=== PATIENT | male | born 1975 | race Caucasian/White ===

== ENCOUNTER → 2016-11-22 | Outpatient (CLI) | payer OTHER ==
--- NOTE | 2016-11-23 07:57 | XR ---
EXAMINATION TYPE: XR chest 2V DATE OF EXAM: 11/22/2016 1:04 PM COMPARISON: NONE HISTORY: Cough with soft tissue mass left lower rib cage FINDINGS: The lungs are clear and there is no pneumothorax, pleural effusion, or focal pneumonia. IMPRESSION: 1. No acute process.
== END | disposition home or self-care (01) ==
LOC: RADXRYALE 12:52
PROVIDERS: ATTEND Internal Medicine
DX: R05 Cough (principal); R22.2 Localized swelling, mass and lump, trunk; M79.81 Nontraumatic hematoma of soft tissue
CPT/HCPCS: 71020

== ENCOUNTER → 2016-11-25 | Outpatient (CLI) | payer OTHER ==
--- NOTE | 2016-11-25 19:51 | US ---
EXAMINATION TYPE: US scrotum with doppler. Grayscale and color Doppler Duplex imaging performed of mike xavier scrotum. DATE OF EXAM: 11/25/2016 6:39 PM COMPARISON: NONE CLINICAL HISTORY: Intermittent Left scrotal pain with foreplay; states pain feels same as after vasec josué years prior. 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 There is no evidence of testicular torsion. Presence of hydroceles: no hydrocele is noted bilaterally. In inferior left scrotal sac tortuous ve ins are noted, however, vein size without Valsalva Maneuver is within normal limits (<0.25cm), and ve ins dilate with Valsalva Maneuver. On US image #[id number] internal vein wall echoes are noted (without Va lsalva) which suggests partial venous thrombosis in upper left scrotal sac at visualized vein. IMPRESSION: No testicular torsion or mass. 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 There are prominent vessels on the left side consistent with mild varic ocele.
== END | disposition home or self-care (01) ==
LOC: RADUSWWP 17:38
PROVIDERS: ATTEND Internal Medicine
DX: I86.1 Scrotal varices (principal); N50.1 Vascular disorders of male genital organs
CPT/HCPCS: 76870; 93975

== ENCOUNTER → 2020-09-21 | Outpatient (CLI) | payer OTHER ==
--- NOTE | 2020-09-21 12:46 | XR ---
No sacral spine HISTORY: Low back pain, strain one week prior 5 views lumbosacral spine There is multilevel spondylosis. Retrolisthesis grade 1 L4-5. Loss of disc height present L5-S1. Scle rosis present in the posterior elements. No evident spondylolysis. IMPRESSION: No acute fracture. Degenerative disc disease and facet arthropathy.
== END | disposition home or self-care (01) ==
LOC: RADXRYALE 11:37
PROVIDERS: ATTEND Physician Assistant Medical
DX: M51.36 Other intervertebral disc degeneration, lumbar region (principal); M47.816 Spondylosis without myelopathy or radiculopathy, lumbar region
CPT/HCPCS: 72110

== ENCOUNTER → 2020-10-21 | Outpatient (CLI) | payer OTHER ==
--- NOTE | 2020-10-21 07:50 | MR ---
EXAMINATION TYPE: MR lumbar spine wo con DATE OF EXAM: 10/21/2020 COMPARISON: Lumbar spine x-ray September 21, 2020 HISTORY: Low back pain into kait lower extremities TECHNIQUE: Multiplanar, multisequence imaging of the lumbar spine is performed without IV contrast. FINDINGS: Sagittal images of the lumbar spine show vertebral body heights to remain satisfactory. Ali gnment straightened and satisfactory. Mild disc desiccation L4-L5 and L5-S1 levels. Disc space height s are maintained. Mild anterior spurring in the lower lumbar spine The conus medullaris is slightly low in position without abnormal signal ending mid L2 level. The bone marrow signal intensity is wit hin normal limits. Axial images are degraded by motion, repeat imaging is performed. Axial images at T12-L1, L1-L2, L2-L 3, and L3-L4 levels are within normal limits. Axial images at L4-L5 levels with mild broad disc bulge minimally effaces the anterior thecal sac, th ere is mild bilateral anterior inferior neural foraminal narrowing. Mild facet arthropathy bilaterall y. Axial images at L5-S1 level show focal central disc protrusion minimally effacing anterior thecal sac . Mild facet arthropathy bilaterally. Patent bilateral neural foramina. Paraspinal muscle bulk is preserved. IMPRESSION: Straightening of lumbar spine with mild degenerative changes lower lumbar levels as detai led above.
== END | disposition home or self-care (01) ==
LOC: RADMRIMAIN 06:39
PROVIDERS: ATTEND Family Medicine
DX: M47.26 Other spondylosis with radiculopathy, lumbar region (principal); M53.86 Other specified dorsopathies, lumbar region
CPT/HCPCS: 72148

== ENCOUNTER → 2022-07-22 | Outpatient (CLI) | payer OTHER ==
--- NOTE | 2022-07-22 08:58 | CT ---
EXAMINATION TYPE: CT soft tissue neck w con DATE OF EXAM: 07/22/2022 COMPARISON: None HISTORY: 47-year-old male R2 2.1, Lump/mass, localized swelling neck, left of midline TECHNIQUE: Contiguous axial scanning of the soft tissues of the neck performed with IV Contrast, reno ent injected with 70 mL of Isovue 300. Coronal/sagittal reconstructions performed. CT DLP: 890.6 mGycm Automated exposure control for dose reduction was used. FINDINGS: There is a palpable marker placed along the anterior neck, left of midline at the level of the thyroi d cartilage. There is an underlying rounded 1.3 cm soft tissue nodule, axial image 45 and coronal elyssa ge 19. Visualized intracranial structures, orbits and globes and mastoid air cells are clear. Prominent leftward nasal septal deviation. Mild mucosal thickening scattered throughout the ethmoid a ir cells and maxillary sinuses with a feel small 1.0 cm polyps or mucosal retention cysts in the maxi llary sinuses. Some frothy opacification left sphenoid sinus could represent an acute sinusitis and can be related c linically. Nasopharynx is clear. Prominent tubal and bilateral palatine tonsils narrowing the junction of the na sopharynx and oropharynx. Additional hypertrophy of the bilateral lingual tonsils. Possible slight thickening of the left half of the epiglottis questionable clinical significance. Thi s does not appear to be masslike thickening, sagittal image 46. Prevertebral soft tissues are satisfactory. Glottic and subglottic structures as well as the tracheal column and visualized upper lungs are clear . Thyroid gland, submandibular glands, and parotid glands are satisfactory. Slightly asymmetrically larger lymph nodes along the left side of the neck measuring up to 1.3 cm, St ation 2, axial image 53 and coronal image 35. These may be reactive/post inflammatory. Bones: Osseous destructive process. IMPRESSION: 1. PALPABLE MARKER PLACED ALONG THE ANTERIOR NECK, LEFT OF MIDLINE AT THE LEVEL OF THE THYROID CARTIL AGE. THERE IS AN UNDERLYING ROUND 1.3 CM SOFT TISSUE NODULE, LIKELY AN ENLARGED LYMPH NODE. CORRELATE FOR ANY SUSPICIOUS CLINICAL FEATURES TO DETERMINE IF THIS SHOULD BE FOLLOWED OR IF BIOPSY SHOULD BE PERFORMED. 2. SLIGHT ASYMMETRICALLY LARGER LYMPH NODES ALONG THE LEFT SIDE OF THE NECK. THESE ARE BORDERLINE BUT NOT ENLARGED BY CT SIZE CRITERIA UP TO 1.3 CM. 3. TUBAL AND PALATINE TONSILLAR HYPERTROPHY. ADDITIONAL HYPERTROPHY OF THE LINGUAL TONSILS. THE JUNCT ION OF THE NASOPHARYNX AND OROPHARYNX IS SECONDARILY NARROWED. NO DOMINANT ASYMMETRIC MASS IS SEEN. C ONSIDER DIRECT VISUALIZATION.
== END | disposition home or self-care (01) ==
LOC: RADCTMAIN 07:50
PROVIDERS: ATTEND Family Medicine
DX: J35.1 Hypertrophy of tonsils (principal); R59.0 Localized enlarged lymph nodes
CPT/HCPCS: 70491; Q9967

== ENCOUNTER 2022-11-11 12:17 | Day surgery (SDC) | payer OTHER ==
[2022-11-11 12:57] VITALS: RESP 16; TEMP 98.5
[2022-11-11 13:53] VITALS: BP 130/74; PULSE 95
--- NOTE | 2022-11-11 14:23 | US ---
Ultrasound-guided core biopsy of a left submandibular lymph node Date: 11/11/2022 History: Enlarged left submandibular lymph node Comparison: CT neck 07/22/2022 The risks and benefits of the procedure were explained to the patient, and the patient's questions we re answered. Informed consent was obtained. Limited ultrasound demonstrates a 1.2 x 1.2 x 0.8 cm hypoechoic left submandibular mass with minimal internal Doppler color flow. A critical pause was performed. Sterile field was prepared, and lidocaine was used for local anesthes ia. Under direct ultrasound guidance, four 18-gauge core specimens of the mass were obtained. One was submitted for touch prep, 2 submitted in formalin, and 1 in saline for flow cytometry. The patient tolerated the procedure well with no apparent complications. A postprocedural scan throug h the region of interest demonstrated no acute complications. After the procedure, the patient was observed for a short period of time, again with no complications . Impression: Ultrasound-guided biopsy of a left submandibular lymph node.
== END 2022-11-11 13:45 | disposition home or self-care (01) ==
LOC: RADPROMAIN 12:17
PROVIDERS: ATTEND Otolaryngology
DX: C85.90 Non-Hodgkin lymphoma, unspecified, unspecified site (principal)
CPT/HCPCS: 38505; 76942; 88184; 88185; 88305; 88341; 88342

== ENCOUNTER 2023-02-02 08:01 | Day surgery (SDC) | payer OTHER ==
[~2023-02-02 08:01] MED LIST: DEXAMETHASONE SOD PHOSPHATE 4 MG/ML 1 ML VIAL IV PRN; FAMOTIDINE 20 MG/2 ML VIAL IV PRN; ONDANSETRON 4 MG/2 ML VIAL IVP PRN; metroNIDAZOLE-NS PMX 500 MG in SALINE 1 100ML.BAG IVPB PRN
[2023-02-02] MEDS ORDERED: ONDANSETRON 4 MG/2 ML VIAL IVP ONE (08:06)
[2023-02-02] MEDS ORDERED: LIDOCAINE 1% (10MG/ML) FOR IV START INTRADERMA PRN (08:06)
[2023-02-02] MEDS ORDERED: HYDROmorphone 0.5 MG/0.5 ML SYRINGE IVP PRN (08:06)
[2023-02-02] MEDS ORDERED: DEXAMETHASONE SOD PHOSPHATE 4 MG/ML 1 ML VIAL IV ONE (08:06)
[2023-02-02] MEDS ORDERED: LACTATED RINGERS 1,000 ML IV SCH (08:06)
[2023-02-02] MEDS ORDERED: PROPOFOL 10 MG/ML 20 ML VIAL IV ONE (08:57)
[2023-02-02] MEDS ORDERED: MIDAZOLAM 2 MG/2 ML VIAL ONE (08:57)
[2023-02-02] MEDS ORDERED: PHENYLEPHRINE-0.9% NACL SYG 1,000 MCG/10 ML SYRINGE ONE (08:57)
[2023-02-02] MEDS ORDERED: fentaNYL (PF) 50 MCG/ML 2 ML AMP ONE (08:57)
[2023-02-02] MEDS ORDERED: LIDOCAINE 2% INJ 20 MG/ML (2 ML VIAL) ONE (08:57)
[2023-02-02] MEDS ORDERED: LIDOCAINE 1%-EPI 1:100,000 20 ML VIAL SQ ONE (09:16)
[2023-02-02] MEDS ORDERED: LACTATED RINGERS 1,000 ML IV ONE ×4 (09:49→10:05)
[2023-02-02 10:00] VITALS: TEMP 97.2
--- NOTE | 2023-02-02 10:01 | P.OP ---
Date of Procedure: 02/02/23 Preoperative Diagnosis: Deep space left neck mass Postoperative Diagnosis: Same Procedure(s) Performed: Excision of a deep space neck mass subfascial Anesthesia: GETA Surgeon: Moises Aviles Estimated Blood Loss (ml): 5 Pathology: other (Left neck mass) Condition: stable Disposition: PACU Indications for Procedure: This patient presented to the office with a left neck mass. Fine-needle aspiration did not reveal a definitive diagnosis there is no squamous cells noted. Patient requested surgical removal of this left neck mass. All risks, benefits, and alternative therapies were discussed. Consent was obtained and all questions were answered Operative Findings: Deep space left neck mass i.e. lymph node Description of Procedure: Patient was taken to the operative room placed in the supine position. A general inhalation anesthetic was administered the patient and subsequently had an LMA inserted to secure the airway. The neck was sterilely prepped and draped in usual fashion and this mass was identified by palpation. A curvilinear incision was made over this area after anesthetization with lidocaine 1% with epinephrine 1 100,000. Dissection was carried out through the subcutaneous fat through the platysmas muscle deep into the subfascial space. A large lymph node was identified just below the hyoid tightly adherent. This mass i.e. lymph node was dissected from the adjacent area. Hemostasis was obtained with handheld cauterization. We closed the deep subfascial space with 4-0 Monocryl. We closed the platysmas layer with 4-0 Monocryl. We closed the subcutaneous and subdermal area with 4-0 Monocryl. We closed the skin with a 50 rapid Vicryl in a running nonlocking fashion. Steri-Strips were applied and the patient tolerated this well. Follow-up will be in the office in 1 week. Awaiting pathology report.
[2023-02-02] MEDS: LACTATED RINGERS 1,000 ML IV ONE (10:05)
[2023-02-02 10:11] VITALS: RESP 16
[2023-02-02] MEDS ORDERED: IV FLUID CONTINUATION 1,000 ML IV ONE (10:30)
[2023-02-02 11:15] VITALS: BP 131/70; PULSE 71
== END 2023-02-02 11:24 | disposition home or self-care (01) ==
LOC: OR 08:01
PROVIDERS: ATTEND Otolaryngology
DX: R59.9 Enlarged lymph nodes, unspecified (principal); I10 Essential (primary) hypertension; K21.9 Gastro-esophageal reflux disease without esophagitis; J45.909 Unspecified asthma, uncomplicated; F10.90 Alcohol use, unspecified, uncomplicated; Z79.899 Other long term (current) drug therapy; Z82.49 Family history of ischemic heart disease and other diseases of the circulatory system; F17.200 Nicotine dependence, unspecified, uncomplicated; Z83.3 Family history of diabetes mellitus
CPT/HCPCS: 21555; 88184; 88185; 88342; 88307; 88341; J2250; J1100; J2405; J3010; J2370; J2704; J2001

== ENCOUNTER → 2024-10-03 | Outpatient (CLI) | payer OTHER ==
[2024-10-03 14:35] VITALS: BP 128/82; PULSE 104; RESP 16; TEMP 98.4
--- NOTE | 2024-10-03 15:03 | P.SLEEP ---
History of Present Illness DATE: 10/03/2024 CONSULTATION/NEW PATIENT EVALUATION HISTORY OF PRESENT ILLNESS/SLEEP-WAKE EVALUATION: 49-year-old gentleman had been evaluated in the sleep center for possible obstructive sleep apnea hypopnea syndrome. SLEEP SCHEDULE: Usually sleep schedule from 9 PM to 4 AM on weekdays and from 10 PM to 56 AM on weekend. FALLING ASLEEP: Usually no significant problems with falling asleep. DURING SLEEP: Patient snores and wakes up from sleep up to 4 times. Positive history of nocturia. No history of hypnogogical hallucinations, sleep paralysis, or cataplexy. DURING THE DAY/WAKE STATE: Patient may feel sleepiness during the day. [place] sleepiness scale is 11. Usually patient does not take naps. PAST MEDICAL HISTORY: Hypertension, asthma. PAST SURGICAL HISTORY: Thyroid resection for benign tumor. MEDICATIONS: Please see below. SOCIAL HISTORY: Please see below. FAMILY HISTORY: Please see below. REVIEW OF SYSTEMS: Snoring, multiple awakenings from sleep, sleepiness during the day. No fevers. No double vision. No recent chest pain. No shortness of breath. No abdominal pain. No bleeding episodes. No blood in urine. No seizure episodes. PHYSICAL EXAMINATION: GENERAL: A pleasant patient without any distress. VITAL SIGNS: Please see below, weight 292 pounds, BMI 43.7. HEENT: PERRLA, EOMI. Evaluation of oropharynx showed tongue protrudes midline, low position of soft palate Mallampati 34, retrognathia 2 mm. NECK: Supple. No JVD. Thyroid is not palpable. 20 inches in circumference. LUNGS: Clear to percussion and to auscultation. Good air exchange. No wheezing or rhonchi. HEART: S1, S2 regular. No murmurs, gallops or rubs. ABDOMEN: Soft and nontender. Bowel sounds are present. No organomegaly appreciated. EXTREMITIES: No clubbing or cyanosis. DERRICK BUILDER: Awake, alert, and oriented x3. Cranial nerves 2 to 7 intact. There is no fasciculation or atrophy noted. No focal deficits observed. ASSESSMENT: 1. Snoring, multiple awakenings from sleep, low position of soft palate Mallampati 34, wide neck 20 inches in circumference, sleepiness with [place] Sleepiness Scale increased to 11. Obstructive sleep apnea hypopnea syndrome. 2. Obesity, BMI 43.7. 3. Hypertension. 4. Asthma. 5 status post thyroid resection for benign tumor. 6 . Status post cholecystectomy. 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 Polysomnography for evaluation of patient's breathing during sleep. 2. Following plan after reading sleep study. 3. Preferable position during sleep on the side. 4. No driving if patient feels any sleepiness. Patient is aware of civil and criminal liability for unsafe driving. 5. Sleep hygiene with regular sleep time for at least 7.5-8 hours. 6. Watching and losing weight. Thank you very much for referring this patient for consultation. Sincerely, Og Mane MD, PhD, FAASM. Diplomat of [place] [employer], Sleep Medicine Board by [place] [employer] [place] [employer] Phytopathologist of [facility] [place] Past Medical History Past Medical History: Asthma, Hypertension Additional Past Medical History / Comment(s): borderline hypertension History of Any Multi-Drug Resistant Organisms: None Reported Past Surgical History: Adenoidectomy, Cholecystectomy, Tonsillectomy Additional Past Surgical History / Comment(s): vasectomy 2006, wisdom tooth pulled, nose surgery when broken as a child Past Anesthesia/Blood Transfusion Reactions: No Reported Reaction Past Psychological History: No Psychological Hx Reported Smoking Status: Former smoker Past Alcohol Use History: Occasional Additional Past Alcohol Use History / Comment(s): quit smoking in 2013 was 2 packs per day for 20 years Past Drug Use History: None Reported - Past Family History Father Family Medical History: Asthma, Eye Disorder Additional Family Medical History / Comment(s): bad back, glaucoma Mother Family Medical History: Coronary Artery Disease (CAD) Additional Family Medical History / Comment(s): "bad teeth", pacemaker Medications and Allergies Home Medications Medication Instructions Recorded Confirmed Type Montelukast [Singulair] 10 mg PO HS 10/24/22 10/03/24 History lisinopriL [Zestril] 20 mg PO HS 10/24/22 10/03/24 History Fluticasone Propionate [Flonase 1 spray EA NOSTRIL DAILY 01/30/23 01/30/23 History Allergy Relief] Allergies Allergy/AdvReac Type Severity Reaction Status Date / Time No Known Allergies Allergy Verified 02/02/23 08:28 Physical Exam Vitals: Vital Signs Temp Pulse Resp BP Pulse Ox 10/03/24 14:32 98.4 F 104 H 16 128/82 95 Intake and Output 10/02/24 10/03/24 10/03/24 22:59 06:59 14:59 Other: Weight 132.449 kg Sleep Note - Sleep Data ESS Total: 11 - Sleep Note Sleep Note: Temperature: 98.4 F Pulse Rate: 104 Respiratory Rate: 16 Blood Pressure: 128/82 SpO2: 95 Height: 5 ft 8.5 in Weight: 132.449 kg BMI: Neck Circumference: 20
== END ==
LOC: 3 N SLEEP 14:03
PROVIDERS: ATTEND Internal Medicine
DX: G47.33 Obstructive sleep apnea (adult) (pediatric) (principal); G47.10 Hypersomnia, unspecified; E66.9 Obesity, unspecified; I10 Essential (primary) hypertension; J45.909 Unspecified asthma, uncomplicated; F17.200 Nicotine dependence, unspecified, uncomplicated; Z90.49 Acquired absence of other specified parts of digestive tract; Z98.890 Other specified postprocedural states; Z68.41 Body mass index [BMI] 40.0-44.9, adult; Z85.850 Personal history of malignant neoplasm of thyroid; Z79.899 Other long term (current) drug therapy; Z79.51 Long term (current) use of inhaled steroids
CPT/HCPCS: 99211

== ENCOUNTER 2024-10-22 19:43 | Outpatient (CLI) | payer OTHER ==
--- NOTE | 2024-10-23 14:27 | P.PCN ---
Description of Procedure: POLYSOMNOGRAPHY REPORT PROCEDURE(S)/DATE(S): Polysomnography 10/22/2024 CLINICAL: Patient has been seen in the sleep center for evaluation of obstructive sleep apnea-hypopnea syndrome. Please see my consultation. Sleep study has been done for evaluation of patient breathing during the sleep. PROCEDURE: The standard montage for clinical polysomnography included the electroencephalogram, the electrooculogram, the mentalis surface electromyography and Lead II cardiography. The respiratory battery consisted of measurements of nasal/buccal air flow, pressure transducer measurements from nose, thoracic and/or abdominal effort and intercostal surface electromyography. Video monitoring has been done to check for any parasomnia events. Nocturnal oxyhemoglobin saturations were obtained by finger oximetry. Step-inman titration with positive airway pressure was utilized to control the respiratory events, if necessary. RESULTS: During the diagnostic sleep study sleep efficiency was decreased to 79.2%. Latency to sleep onset was in short range 8.5 min. Sleep architecture showed stage NI was increased to 13.1%, Delta sleep was normal 6.5%, REM sleep was decreased to 10.6%. Respiratory channel showed 12 obstructive apneas, 0 mixed apneas, 0 central apneas, 266 hypopneas with lowest oxygen level 73%. Total apnea hypopnea index was 49.6. Oxygen level was below equal 88% for 45.7 minutes. Heart rate was in the range between 62 and 77, average 69. EMG showed 1.1 periodic limb movements per hour with 1.1 micro-arousals per hour. IMPRESSIONS: 1. Severe obstructive sleep apnea hypopnea syndrome with severe oxygen desaturation. 2. No significant periodic limb movements have been documented. Please see other impressions from consultation PLAN: 1. The patient will have PAP titration for correction of respiratory abnormalities during the sleep. 2. Losing weight program. 3. Sleep hygiene with regular time in bed for at least 7-1/2 hours. 4. No driving if feeling sleepiness. Thank you very much for allowing me to participate in the management of your patient. Sincerely, Og Mane MD, PhD, FAASM. Diplomat of [place] [employer], Sleep Medicine Board by [place] [employer] Welding Lead Burner of [facility] [place] cc: Ramón Edouard DO
== END 2024-10-23 05:30 | disposition home or self-care (01) ==
LOC: 3 N SLEEP 19:43
PROVIDERS: ATTEND Internal Medicine
DX: G47.33 Obstructive sleep apnea (adult) (pediatric) (principal); G47.36 Sleep related hypoventilation in conditions classified elsewhere; F17.210 Nicotine dependence, cigarettes, uncomplicated
CPT/HCPCS: 95810

== ENCOUNTER 2024-11-18 19:45 | Outpatient (CLI) | payer OTHER ==
--- NOTE | 2024-11-20 13:54 | P.PCN ---
Description of Procedure: CLINICAL: Titration with positive air pressure has been done for correction of respiratory abnormalities during sleep. DESCRIPTION OF PROCEDURE: The standard montage for clinical polysomnography included the electroencephalogram, the electrocardiogram, the mentalis surface electromyography and Lead II cardiography. The respiratory battery consisted of measurements of nasal /buccal air flow, pressure transducer measurements from the nose, thoracic and /or abdominal effort and intercostal surface electromyography. Video monitoring has been done to check for any parasomnia events. Nocturnal oxyhemoglobin saturations were obtained by finger oximetry. Step-inman titration with positive airway pressure was utilized to control respiratory events. Raw data of sleep recording has been reviewed and is adequate. RESULTS: Sleep efficiency was decreased to 79.5%. Latency to sleep onset was borderline 30.0 minutes.]. Sleep architecture showed stage N1 was normal 5.4%, Delta sleep was acceptable 5.6%, REM sleep was close to normal 19.0%. Heart rate was minimum 82 BPM, maximum 92 BPM, average 86 BPM. EMG showed 0 periodic limb movements per hour. PAP titration have been done with CPAP up to the pressure 11 cm H2O. The best results were at the pressure 11 cm H2O. Apnea hypopnea index reduced to 1.1. IMPRESSION: 1. Obstructive sleep apnea hypopnea syndromeon controle with PAP treatment. 2. No significant periodic limb movements have been documented. Please see other impressions from consultation. PLAN: 1. The patient will have treatment with positive air pressure equipment with the level of pressure [] cm H2O and should use it every night for the whole night. 2. Watching weight. 3. Sleep hygiene with regular time in bed for at least 8 hours. 4. No driving if feeling any sleepiness. 5. I will see the patient for follow up visit to explain the results of the test, recommendations, check compliance with treatment and make any necessary adjustment related to mask fitting, pressure and humidification. 6. Please check iron profile including ferritin level. Low level of iron may increase risk for periodic limb movements Thank you very much for allowing me to participate in the management of your patient. Sincerely, Og Mane MD, PhD, FAASM Diplomat of [place] [employer] Sleep Medicine Board of [place] [employer] of [employer] Medicine Visual Arts Teacher of [facility] [place] cc: Ramón Falk DO
== END 2024-11-19 05:15 | disposition home or self-care (01) ==
LOC: 3 N SLEEP 19:45
PROVIDERS: ATTEND Internal Medicine
DX: G47.33 Obstructive sleep apnea (adult) (pediatric) (principal); F17.210 Nicotine dependence, cigarettes, uncomplicated
CPT/HCPCS: 95811

== ENCOUNTER → 2025-02-06 | Outpatient (CLI) | payer BC ==
--- NOTE | 2025-02-06 16:43 | P.PROGSL ---
Subjective DATE: [] FOLLOW UP VISIT. Patient with obstructive sleep apnea hypopnea syndrome return to sleep center for follow-up visit. Recently patient had sleep study which documented obstructive sleep apnea hypopnea syndrome. Patient was initiated on PAP therapy and today is first visit after treatment was started. Patient was able to use PAP equipment every night for the whole night. The patient does not have significant problems with the mask, PAP pressure and humidification. [place] sleepiness scale is 8, which is normal. I checked information from PAP unit. PAP unit pressure 11 cm H2O. Usage is 100% for more then 4 hours, average 7 hours per night. Leak is 5.0 l/m, which is in acceptable range. Apnea Hypopnea Index is 1.3, which is normal. Patient feels that sometimes it is not enough pressure at the beginning of using CPAP equipment and torso in the middle of the night. MEDICATIONS: Please see below During physical exam: GENERAL: A pleasant patient without any distress. VITAL SIGNS: Please see below, weight 296.0. HEENT: PERRLA, EOMI.low position of soft palate, Mallapati 4 . NECK: Supple. No JVD. LUNGS: Clear to percussion and to auscultation. Good air exchange. No wheezing or rhonchi. HEART: S1, S2 regular. ABDOMEN: Soft and nontender. Obese EXTREMITIES: No clubbing or cyanosis. RETAIL SALESWORKER: Awake, alert, and oriented x3. No focal deficit. Impressions: 1. Obstructive sleep apnea-hypopnea syndrome. Patient demonstrated great compliance with treatment, benefiting from treatment. 2. Obesity. 3. Hypertension. 4. Asthma. 5. Status post thyroid resection for benign tumor. 6. Status post cholecystectomy. 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 I changed the regimen from CPAP to AutoPap with a range of pressure 10-13 cm of water. Plan: 1. Continue using PAP equipment every night for the whole night. 2. To change air filter at least 1-2 times per month. 3. PAP unit should stay lower then position of the head. 4. Advised patient to remove all remaining water from humidifier canister daily and make it dry after each usage. Refill canister with fresh distilled water before each usage. 5. Sleep hygiene with regular time in bed for at least 8 hours. 6. Precautions related to driving. No driving if feel any sleepiness. 7. I will maintain prescription for PAP supplies including mask, tube, filters. 8. Follow up visit in 8 months or earlier if patient has any problems. 9. Watching and losing weight. Thank you very much for allowing me to participate in the management of your patient. Og Mane MD, PhD, FAASM. Diplomat of [place] [employer] Medicine, Sleep Medicine Board by [place] [employer] Billboard Erector Helper of [facility] [place] Objective - Vital Signs Vital Signs: Intake & Output 02/05/25 02/06/25 02/06/25 18:59 06:59 18:59 Weight 134.263 kg Home Medications: Home Medications Medication Instructions Recorded Confirmed Type Montelukast [Singulair] 10 mg PO HS 10/24/22 10/03/24 History lisinopriL [Zestril] 20 mg PO HS 10/24/22 10/03/24 History Fluticasone Propionate [Flonase 1 spray EA NOSTRIL DAILY 01/30/23 01/30/23 History Allergy Relief]
== END ==
LOC: 3 N SLEEP 15:44
PROVIDERS: ATTEND Internal Medicine
DX: Z99.89 Dependence on other enabling machines and devices (principal); G47.33 Obstructive sleep apnea (adult) (pediatric); I10 Essential (primary) hypertension; F17.210 Nicotine dependence, cigarettes, uncomplicated; J45.909 Unspecified asthma, uncomplicated; Z85.858 Personal history of malignant neoplasm of other endocrine glands; Z90.49 Acquired absence of other specified parts of digestive tract
CPT/HCPCS: 99212